=== PATIENT | female | born 1950 | race Caucasian/White ===

== ENCOUNTER 2018-06-29 13:59 | Inpatient (IN) | payer OTHER ==
[~2018-06-29] VITALS: Ht 165.1 cm; Wt 65.8 kg
--- NOTE | 2018-06-29 00:15 | NUR ---
PT SLEEPING. NO S/S OF PAIN OR RESP DISTRESS. CALL LIGHT WITHIN REACH. Addendum: 06/30/18 at 0129 by Nessa Brown RN PLS DISREGARD. WRONG DATE
[2018-06-29 14:00] VITALS: BP 135/52
--- NOTE | 2018-06-29 14:00 | NUR ---
FIRST CONTACT WITH PATIENT PATIENT RAMAN/ DAWN FIRE ON BIPAP, ENROUTE TO PCP FOR FOLLOW UP WITH RECENT DX OF COPD. PER EMS PATIENT WAS ENROUTE TO PCP, GOT LOST AND BECAME ANXIOUS, BEGAN TO HYPERVENTILATE AND DECOMPENSATED WITH LOW SATS OF 89% ON RA W/ BILAT WHEEZES HEARD ON AUSCULATATION. EMS STARTED PATIENT ON BIPAP, GAVE 1 BREATHING TX AND GOT IMMEDIATE RELEIF. PATIENT GCS 15, AAOX4, PERRLA 3/2MM BILAT. IV EST BY EMS, 20G TO LAC, C/D/P. PATIENT HR LOW 100'S BPM ON CM, NO ECTOPY NOTED, NO CP COMPLAINT AT THIS TIME. PATIENT BREATHING IS EVEN, LABORED, AND SLIGHT WHEEZES ARE HEARD BILAT. RT AT BEDSIDE, CHANGE TO [facility] BIPAP, WITH O2SAT 96-100 % ON 30% O2. PATIENT IS ABLE TO SPEAK IN FULL COMPLETE SENTENCES, AND ABLE TO MAKE NEEDS KNOWN. PATIENT DENIES ANY RECENT ILLNESS, NO RECENT TRAVEL. NO DIZZINESS, NO N/V/D. DR SUN MADE AWARE OF PATIENT STATUS. BED IN LOWEST POSITION, SIDE RAILS UP X 2 FOR SAFETY, WILL CONTINUE TO MONITOR
--- NOTE | 2018-06-29 14:00 | NUR ---
PLACED ON BIPAP TO MASK NOTED
--- NOTE | 2018-06-29 14:06 | NUR ---
REVIEWED PATIENT AND BIPAP STATUS WITH DR CHRISTOPHER SUN PER ED/MD V.O. REMOVE FROM BIPAP TO MASK PLACE ON SUPPLEMENTAL OXYGEN AT 2 LPM VIA NC AND MONITOR
[2018-06-29 14:10] VITALS: BP 177/124
[2018-06-29] MEDS ORDERED: ALBUTEROL 0.083% 2.5 MG/3 ML NEBU INH ONE (14:10)
[2018-06-29] MEDS ORDERED: IPRATROPIUM 0.02% 0.5 MG/2.5 ML NEBU INH ONE (14:10)
[2018-06-29] MEDS ORDERED: methylPREDNISolone SS 125 MG/2 ML VIAL IVP ONE (14:10)
--- NOTE | 2018-06-29 14:15 | NUR ---
PATIENT TAKEN OFF OF BIPAP AND PLACED ON 2L NC, TOLERATING WELL. RT AT BEDSIDE. WILL MONITOR CLOSELY.
--- NOTE | 2018-06-29 14:17 | NUR ---
HHN THERAPY AND RESPIRATORY GIVEN ORDERED ENCOURAGED PATIENT FOR INTERMITTENT DEEP BREATHING AND COUGH DURING THERAPY
--- NOTE | 2018-06-29 14:19 | NUR ---
rt by bedside, administering breathing txt. patient tolerating well.
--- NOTE | 2018-06-29 14:19 | NUR ---
lab by bedside
--- NOTE | 2018-06-29 14:25 | NUR ---
PATIENT CHANGED TO COOL MIST MASK 8L, PER DR SUN, CHANGED FROM BIPAP TO COOL MIST BY RT
--- NOTE | 2018-06-29 14:26 | NUR ---
XRAY AT BEDSIDE
--- NOTE | 2018-06-29 14:27 | NUR ---
Roger cabrera in [facility] - 06/29/18 at 1427 by MAGALI XRAY AT BEDSIDE.
[2018-06-29 14:29] LABS: BASOPHILS # (AUTO) 0.1 K/uL (0.00-0.22); BASOPHILS % (AUTO) 0.4 % (0.0-2.0); EOSINOPHILS # (AUTO) 0.3 K/uL (0-0.4); EOSINOPHILS % (AUTO) 2.4 % (0.0-4.0); HEMATOCRIT 42.5 % (36-48); HEMOGLOBIN 13.9 g/dL (12.0-16.0); LYMPHOCYTES # (AUTO) 1.3 K/uL (2.5-16.5); LYMPHOCYTES % (AUTO) 9.2 % (20.5-51.1); MEAN CORPUSCULAR HEMOGLOBIN 30 pg (27-31); MEAN CORPUSCULAR HGB CONC 33 g/dL (33-37); MEAN CORPUSCULAR VOLUME 91.6 fL (80-94); MONOCYTES # (AUTO) 0.7 K/uL (0.8-1.0); NEUTROPHILS # (AUTO) 11.3 K/uL (1.8-7.7); PLATELET COUNT (AUTO) 173 K/uL (140-450); RED BLOOD CELL COUNT(AUTO) 4.63 MIL/uL (4.20-5.40); RED CELL DISTRIBUTION WIDTH 13.6 % (11.6-13.7); WHITE BLOOD COUNT (AUTO) 13.6 K/uL (4.8-10.8)
[2018-06-29 14:57] LABS: ANION GAP 11.9 (8-16); CARBON DIOXIDE 25.9 mmol/L (21-32); CREATININE 1.4 mg/dL (0.6-1.3); POTASSIUM 3.8 mmol/L (3.5-5.1); TOTAL BILIRUBIN 0.3 mg/dL (0.0-1.0)
[2018-06-29] MEDS ORDERED: KETOROLAC 30 MG/ML VIAL IVP ONE (15:20)
[2018-06-29] MEDS: NACL 0.9% 1,000 ML IV SCH (16:13)
[2018-06-29] MEDS ORDERED: DOCUSATE SODIUM 100 MG GELCAP PO PRN (16:15)
[2018-06-29] MEDS ORDERED: ACETAMINOPHEN 325 MG TAB PO PRN (16:15)
[2018-06-29] MEDS ORDERED: LORazepam 2 MG/ML VIAL IM/IVP PRN (16:15)
[2018-06-29] MEDS ORDERED: ZOLPIDEM 5 MG TAB PO PRN (16:15)
[2018-06-29] MEDS ORDERED: MORPHINE SULFATE 2 MG/ML SYR IVP PRN (16:15)
[2018-06-29] MEDS ORDERED: ONDANSETRON 4 MG/2 ML VIAL IM/IVP PRN (16:15)
[2018-06-29] MEDS ORDERED: TRA200 PO (16:57)
[2018-06-29] MEDS ORDERED: MONT10TA35 PO (16:57)
[2018-06-29] MEDS ORDERED: HYDR25TA32 PO (16:57)
[2018-06-29] MEDS ORDERED: HYDR100T79 PO (16:57)
[2018-06-29] MEDS ORDERED: CITA10TA5 PO (16:57)
[2018-06-29] MEDS ORDERED: TRAZ-343 PO (16:57)
--- NOTE | 2018-06-29 17:00 | NUR ---
RECEIVED PT REPORT FROM ED NURSE ZACK. PT IS AWAKE AND ALERT, NO S/S OF ACUTE DISTRESS NOTED. NO SOB OR CHEST PAIN. PT IS ON ROOM AIR. SKIN INTACT. IV SITE NOTED ON L AC, 20 G, PATENT AND INTACT. MRSA SWAB TAKEN. FALL PRECAUTIONS PUT IN PLACE, HOWEVER PT REPORTS SHE FEELS STEADY WHEN AMBULATING. PT REPORTS HX OF HIGH BP, BP ON ADMISSION WAS 169/93. WILL MEDICATE WITH SCHEDULED HYDRALAZINE. CALL LIGHT GIVEN WITHIN REACH. WILL CONTINUE TO MONITOR.
--- NOTE | 2018-06-29 17:01 | NUR ---
PATIENT ADMITTED TO CARE OF DR HWANG ON TELE UNIT BED 111-B. TRANSFERED WHILE BEING [place]IT[place] [facility] BY RN AND EMT. STABLE DURING TRANSFER. REPORT GIVEN TO JENNIFER FAN.
[2018-06-29 17:06] LABS: PHOSPHORUS 4.1 mg/dL (2.5-4.9); THYROID STIMULATING HORMONE 0.01 uIU/mL (0.34-3.74)
[2018-06-29 17:11] LABS: PROTHROMBIN TIME 9.6 secs (10.8-13.4)
[2018-06-29 17:15] VITALS: BP 169/93
[2018-06-29] MEDS ORDERED: hydrALAZINE 25 MG TAB PO SCH (17:15)
[2018-06-29] MEDS ORDERED: NICOTINE TRANSD SYS 14 MG/24 HR PATCH TD SCH (18:00)
--- NOTE | 2018-06-29 19:30 | NUR ---
RECEIVED REPORT FROM DAY SHIFT NURSE. AAOX4. NO C/O PAIN OR SOB. ON ROOM AIR. IV TO LEFT AC #20G, NS AT 80 ML/HR INFUSING WELL. SKIN INTACT. DISCUSSED PLAN OF CARE, PT VERBALIZED UNDERSTANDING. SAFETY PRECAUTION IN PLACE. CALL LIGHT WITHIN REACH.
--- NOTE | 2018-06-29 19:50 | NUR ---
ENDORSED PT TO ASSISTANT BRANCH MANAGER IN STABLE CONDITION. ENDORSED FLU A&B NASAL SWAB TO ASSISTANT BRANCH MANAGER NURSE.
[2018-06-29 20:00] VITALS: BP 158/66
--- NOTE | 2018-06-29 20:00 | NUR ---
PT REFUSED SCDS. EXPLAINED TO PT THE RISK AND BENEFITS. PT VERBALIZED UNDERSTANDING BUT STILL REFUSED.
[2018-06-29] MEDS: methylPREDNISolone SS 40 MG/ML VIAL IVP SCH (20:51)
[2018-06-29] MEDS: hydrALAZINE 25 MG TAB PO SCH (20:51)
[2018-06-29] MEDS: LABETALOL 200 MG TAB PO SCH (20:52)
[2018-06-29] MEDS ORDERED: traZODone 50 MG TAB PO SCH (21:00)
[2018-06-29] MEDS ORDERED: LORazepam 2 MG/ML VIAL IM/IVP SCH (21:00)
[2018-06-29] MEDS: traZODone 50 MG TAB PO SCH (21:22)
--- NOTE | 2018-06-29 21:50 | NUR ---
PT SLEEPING AT THIS TIME. NO ACUTE DISTRESS NOTED. PER DR. RIOS, HOLD THE ATIVAN FOR NOW.
[2018-06-30] VITALS (7 sets, daily range): BP systolic 135–179; BP diastolic 52–72
--- NOTE | 2018-06-30 00:15 | NUR ---
PT SLEEPING. NO S/S OF PAIN OR RESP DISTRESS. CALL LIGHT WITHIN REACH.
--- NOTE | 2018-06-30 03:03 | NUR ---
PT ASLEEP. RESP EVEN AND UNLABORED. NO S/S OF PAIN OR DISCOMFORT. SAFETY MEASURES IN PLACE.
[2018-06-30] MEDS: methylPREDNISolone SS 40 MG/ML VIAL IVP SCH ×3 (04:15→20:56)
--- NOTE | 2018-06-30 04:15 | NUR ---
V/S TAKEN, WNL. DUE MEDS GIVEN. PT DENIES PAIN OR SOB.
[2018-06-30] MEDS: NACL 0.9% 1,000 ML IV SCH ×2 (05:04→18:50)
[2018-06-30 06:11] LABS: BASOPHILS % (AUTO) 0.1 % (0.0-2.0); HEMATOCRIT 39.2 % (36-48); LYMPHOCYTES # (AUTO) 0.4 K/uL (2.5-16.5); LYMPHOCYTES % (AUTO) 5.3 % (20.5-51.1); MEAN CORPUSCULAR HEMOGLOBIN 30 pg (27-31); MEAN CORPUSCULAR HGB CONC 33 g/dL (33-37); MEAN CORPUSCULAR VOLUME 91.2 fL (80-94); MONOCYTES # (AUTO) 0.1 K/uL (0.8-1.0); MONOCYTES % (AUTO) 1.6 % (1.7-9.3); NEUTROPHILS # (AUTO) 7.8 K/uL (1.8-7.7); PLATELET COUNT (AUTO) 151 K/uL (140-450); RED CELL DISTRIBUTION WIDTH 13.3 % (11.6-13.7); WHITE BLOOD COUNT (AUTO) 8.4 K/uL (4.8-10.8)
[2018-06-30 06:21] LABS: T4 (THYROXINE) 7.6 ug/dL (4.5-12.0)
--- NOTE | 2018-06-30 06:30 | NUR ---
PT SLEEPING. NO S/S OF RESP DISTRESS NOTED. IVF INFUSING WELL.
[2018-06-30 06:41] LABS: ANION GAP 11.2 (8-16); CARBON DIOXIDE 25.9 mmol/L (21-32); CREATININE 1.2 mg/dL (0.6-1.3); POTASSIUM 4.1 mmol/L (3.5-5.1)
[2018-06-30 06:47] LABS: MAGNESIUM 2.1 mg/dL (1.8-2.4); PHOSPHORUS 4.2 mg/dL (2.5-4.9)
--- NOTE | 2018-06-30 07:25 | NUR ---
ENDORSED PT TO DAY SHIFT NURSE. PT IN STABLE CONDITION.
--- NOTE | 2018-06-30 07:28 | NUR ---
RECEIVED BEDSIDE REPORT FROM FIELD INSTALLER NURSE. PT IS AOX4. DENIES PAIN. IN ROOM AIR. RESPIRATION EVEN AND UNLABORED, SPO2 AT 96%. NO SIGNS OF DISTRESS NOTED. IV ON L AC 20G, PATENT AND ASYMPTOMATIC, INFUSING PER MD ORDER. IV SITE CLEAN AND DRY. SKIN INTACT, CLEAN AND DRY. ABLE TO AMBULATE WITH STEADY GAIT INDEPENDENTLY. DISCUSSES PLAN OF CARE WITH PT, AND PT VERBALIZED UNDERSTANDING. SAFETY MEASURES IN PLACE. BED IN LOW POSITION, AND CALL LIGHT WITHIN REACH.
--- NOTE | 2018-06-30 08:09 | NUR ---
RECEIVED PATIENT ON ROOM AIR, PULSE OX SAT 96%. PATIENT DENIES SOB. HHN NOT INDICATED AT THIS TIME. NO RESPIRATORY DISTRESS NOTED AT THIS TIME. WILL CONTINUE TO MONITOR.
--- NOTE | 2018-06-30 08:30 | NUR ---
APPLIED NC @2L/MIN ON PT PER MD ORDER.
--- NOTE | 2018-06-30 08:30 | NUR ---
COLLECTED URINE FROM PT VIA DIRECT VOID INTO SPECIMEN CUP AND DELIVERED TO LAB.
[2018-06-30] MEDS: HYDROCHLOROTHIAZIDE 25 MG TAB PO SCH (08:57)
[2018-06-30] MEDS: hydrALAZINE 25 MG TAB PO SCH ×4 (08:58→20:58)
[2018-06-30] MEDS: CITALOPRAM 20 MG TAB PO SCH (08:58)
[2018-06-30] MEDS: LABETALOL 200 MG TAB PO SCH ×2 (08:58→20:58)
[2018-06-30] MEDS: NICOTINE TRANSD SYS 14 MG/24 HR PATCH TD SCH (09:00)
--- NOTE | 2018-06-30 09:03 | NUR ---
ADMINISTERED MEDS PER MD ORDER. PT REFUSED TO GET NICOTINE TRANSDERMAL PATCH AND STATED "I DON'T NEED IT NOW." PROVIDED MEDICATION EDUCATIONS TO PT, AND PT VERBALIZED UNDERSTANDING. SAFETY MEASURES IN PLACE.
[2018-06-30 09:41] LABS: APPEARANCE,URINE SL CLOUDY (CLEAR); BILIRUBIN,URINE NEGATIVE (NEGATIVE); BLOOD, URINE TRACE-I (NEGATIVE); COLOR,URINE YELLOW (YELLOW); LEUKOCYTE ESTERASE ,URINE 1+ (NEGATIVE); NITRITE, URINE POSITIVE (NEGATIVE); UGLUCOSE NEGATIVE (NEGATIVE)
[2018-06-30 09:52] LABS: RBC,URINE 0-5 /HPF (0-5); WBC,URINE 60-80 /HPF (0-5)
--- NOTE | 2018-06-30 10:25 | NUR ---
PT C/O OF HEADACHE PAIN LEVEL 2/10. VITAL SIGNS TAKEN; TEMP 97.8, BP 135/57, SPO2 98 ON NC AT 2L/MIN, PULSE 70, RESPIRATION 18. MEDICATED WITH PRN ACETAMINOPHEN. WILL CONTINUE TO MONITOR.
[2018-06-30] MEDS ORDERED: DOXYCYCLINE 100 MG in DEXTROSE 5% 100 ML IV SCH (11:13)
[2018-06-30] MEDS: HYDROcodone/APAP 5/325 MG 1 TAB TAB PO PRN ×2 (13:42→20:24)
--- NOTE | 2018-06-30 14:15 | NUR ---
IV INFILTRATED. D/C IV ON L AC, IV CANNULA INTACT AND COMPLETED. MINIMAL BLEEDING AT IV SITE. STARTED NEW IV ON R HAND 20G, INTACT AND PATENT. PT TOLERATED WELL.
--- NOTE | 2018-06-30 15:48 | NUR ---
PT C/O OF HEADACHE AND FEELING RESTLESS. VITAL SIGNS TAKEN B/P 165/66, PULSE 74, SPO2 96% WITH NC 2L/MIN, TEMP 97.8. NOTIFIED.
[2018-06-30] MEDS ORDERED: APAP/BUTAL/CAFF 325/50/40 MG 1 TAB PO PRN (16:00)
--- NOTE | 2018-06-30 17:06 | NUR ---
ADMINISTERED PRN PAIN MED FOR HEADACHE.
--- NOTE | 2018-06-30 18:40 | NUR ---
CHANGED ALL SOILED LINENS AND BLANKET.
--- NOTE | 2018-06-30 19:05 | NUR ---
ENDORSED PT TO POCKET AND PULLEY MACHINE OPERATOR NURSE AT BEDSIDE FOR CONTINUITY OF CARE. PT IS IN STABLE CONDITION.
--- NOTE | 2018-06-30 19:10 | NUR ---
RECEIVED REPORT FROM DAY SHIFT NURSE. PT LYING IN BED. AAOX4. NO C/O PAIN. NO RESP DISTRESS NOTED. ON 02 AT 2L/MIN VIA NC. SKIN INTACT. IV TO RIGHT HAND #20G, NS AT 80 ML/HR INFUSING WELL. DISCUSSED PLAN OF CARE, PT VERBALIZED UNDERSTANDING. SAFETY PRECAUTION IN PLACE. CALL LIGHT WITHIN REACH.
[2018-06-30] MEDS: BUDESONIDE 0.5 MG/2 ML NEBU INH SCH (20:43)
[2018-06-30] MEDS: ALBUTEROL SULFATE/IPRATROPIU 3 ML SOL IH PRN (20:43)
[2018-06-30] MEDS: DOXYCYCLINE 100 MG in DEXTROSE 5% 100 ML IV SCH (20:54)
[2018-06-30] MEDS: traZODone 50 MG TAB PO SCH (20:57)
--- NOTE | 2018-06-30 21:00 | NUR ---
DUE MEDS GIVEN. PT TOLERATED WELL. PT ASKED FOR SNACK, SNACK PROVIDED. ALL NEEDS MET AT THIS TIME. CALL LIGHT WITHIN REACH.
--- NOTE | 2018-06-30 22:07 | NUR ---
REVIEWED OXYGEN STATUS AND STANDING TITRATION ORDER WITH DR GABRIEL TSAI STATES TO REMOVE SUPPLEMENTAL OXYGEN VIA NC Addendum: 06/30/18 at 2215 by Juancho Morrison RT AMELIA/MITA NOTIFIED
--- NOTE | 2018-06-30 23:50 | NUR ---
PT SLEEPING BUT EASILY AROUSABLE. RESP EVEN AND UNLABORED. PT ON ROOM AIR. NO S/S OF PAIN.
[2018-07-01] VITALS (7 sets, daily range): BP systolic 137–182; BP diastolic 59–68
--- NOTE | 2018-07-01 02:30 | NUR ---
PT ASLEEP. NO S/S OF PAIN. NO S/S SOB. IVF INFUSING WELL.
[2018-07-01] MEDS: methylPREDNISolone SS 40 MG/ML VIAL IVP SCH ×2 (04:27→12:40)
--- NOTE | 2018-07-01 05:00 | NUR ---
PT SLEEPING. NO S/S OF RESP DISTRESS. NO S/S OF PAIN OR DISCOMFORT.
[2018-07-01] MEDS: NACL 0.9% 1,000 ML IV SCH ×2 (06:46→19:05)
--- NOTE | 2018-07-01 07:05 | NUR ---
ENDORSED PT TO DAY SHIFT NURSE. PT IN STABLE CONDITION.
--- NOTE | 2018-07-01 07:07 | NUR ---
RECEIVED BEDSIDE REPORT FROM STEEP TENDER NURSE. PT IS AOX4. DENIES PAIN. IN ROOM AIR. RESPIRATION EVEN AND UNLABORED, SPO2 AT 94%. NO SIGNS OF DISTRESS NOTED. IV ON R HAND 20G, PATENT AND ASYMPTOMATIC, INFUSING PER MD ORDER. IV SITE CLEAN AND DRY. SKIN INTACT, CLEAN AND DRY. ABLE TO AMBULATE WITH STEADY GAIT INDEPENDENTLY. DISCUSSES PLAN OF CARE WITH PT, AND PT VERBALIZED UNDERSTANDING. SAFETY MEASURES IN PLACE. BED IN LOW POSITION, AND CALL LIGHT WITHIN REACH.
[2018-07-01 07:45] LABS: HEMATOCRIT 37.7 % (36-48); HEMOGLOBIN 12.3 g/dL (12.0-16.0); LYMPHOCYTES # (AUTO) 0.3 K/uL (2.5-16.5); LYMPHOCYTES % (AUTO) 2.4 % (20.5-51.1); MEAN CORPUSCULAR HEMOGLOBIN 30 pg (27-31); MEAN CORPUSCULAR HGB CONC 33 g/dL (33-37); MEAN CORPUSCULAR VOLUME 92.2 fL (80-94); MONOCYTES # (AUTO) 0.3 K/uL (0.8-1.0); MONOCYTES % (AUTO) 2.1 % (1.7-9.3); NEUTROPHILS # (AUTO) 14.1 K/uL (1.8-7.7); NEUTROPHILS % (AUTO) 95.5 % (42.2-75.2); PLATELET COUNT (AUTO) 164 K/uL (140-450); RED BLOOD CELL COUNT(AUTO) 4.09 MIL/uL (4.20-5.40); RED CELL DISTRIBUTION WIDTH 13.5 % (11.6-13.7); WHITE BLOOD COUNT (AUTO) 14.8 K/uL (4.8-10.8)
[2018-07-01 08:06] LABS: ANION GAP 11.6 (8-16); CARBON DIOXIDE 24.4 mmol/L (21-32)
[2018-07-01] MEDS: BUDESONIDE 0.5 MG/2 ML NEBU INH SCH ×2 (08:15→20:36)
[2018-07-01] MEDS: ALBUTEROL SULFATE/IPRATROPIU 3 ML SOL IH PRN ×2 (08:15→20:36)
[2018-07-01 08:22] LABS: MAGNESIUM 2.1 mg/dL (1.8-2.4); PHOSPHORUS 3.3 mg/dL (2.5-4.9)
--- NOTE | 2018-07-01 08:35 | NUR ---
RECEIVED PATIENT ON ROOM AIR, PULSE OX SAT 95%. PATIENT COMPLAINS OF MILD SOB. PATIENT PRESENTS WITH COARSE/WHEEZING DRY COUGH. PRN BREATHING TREATMENT ADMINISTERED. TOLERATED WELL. SCHEDULED BREATHING TREATMENT ADMINISTERED. ORAL RINSE DONE POST TX. NO RESPIRATORY DISTRESS NOTED AT THIS TIME. NASAL CANNULA PLACED AT BEDSIDE NEEDED. WILL CONTINUE TO MONITOR.
[2018-07-01] MEDS: NICOTINE TRANSD SYS 14 MG/24 HR PATCH TD SCH (09:00)
--- NOTE | 2018-07-01 09:15 | NUR ---
PT IS WITH THE PHYSICAL THERAPIST PETAR FOR PT EVALUATION. VITAL SINGS TAKEN BP 139/59, PULSE 79, SPO2 95% RA, PAIN LEVEL 1/10 FOR HEADACHE, RESPIRATION 18.
[2018-07-01] MEDS: LACTOBACILLUS RHAMNOSUS GG 1 EACH CAP PO SCH (09:33)
[2018-07-01] MEDS: DOXYCYCLINE 100 MG in DEXTROSE 5% 100 ML IV SCH ×2 (09:33→20:31)
[2018-07-01] MEDS: hydrALAZINE 25 MG TAB PO SCH ×4 (09:33→20:27)
[2018-07-01] MEDS: LABETALOL 200 MG TAB PO SCH ×2 (09:34→20:28)
[2018-07-01] MEDS: CITALOPRAM 20 MG TAB PO SCH (09:34)
[2018-07-01] MEDS: HYDROCHLOROTHIAZIDE 25 MG TAB PO SCH (09:35)
[2018-07-01] MEDS: HYDROcodone/APAP 5/325 MG 1 TAB TAB PO PRN ×4 (09:35→23:11)
--- NOTE | 2018-07-01 09:35 | NUR ---
VITAL SIGNS TAKEN PRIOR TO MEDICATION ADMINISTRATION, TEMP 95.6, SPO2 92%, BP 142/59, PULSE 70, RR 18, HEADACHE 4. ADMINISTERED MEDS PER MD ORDER, AND PRN PAIN MED FOR HEADACHE. PT TOLERATED WELL. NO SIGNS OF DISTRESS NOTED.
--- NOTE | 2018-07-01 11:50 | NUR ---
IV INFILTRATED AND LEAKING. D/C IV, IV CANNULA INTACT AND COMPLETED. NO BLEEDING AT IV INSERTION SITE. STARTED NEW IV ON L AC 20, ASYMPTOMATIC AND PATENT, PT TOLERATED WELL.
--- NOTE | 2018-07-01 13:21 | NUR ---
ASSISTED PT TO GET OUT OF BED AND USED THE BATHROOM. PT IS ABLE TO AMBULATE WITH STANDBY ASSISTANCE.
[2018-07-01] MEDS ORDERED: methylPREDNISolone SS 125 MG/2 ML VIAL IVP ONE (14:40)
[2018-07-01] MEDS ORDERED: APAP/BUTAL/CAFF 325/50/40 MG 1 TAB PO PRN (14:55)
[2018-07-01] MEDS ORDERED: methylPREDNISolone SS 125 MG/2 ML VIAL IVP SCH (15:00)
--- NOTE | 2018-07-01 15:17 | NUR ---
PT C/O OF HEADACHE LEVEL 5/10. ADMINISTERED PRN PAIN MED.
--- NOTE | 2018-07-01 16:55 | NUR ---
PT ASKED FOR JELLO AND PUDDING. PROVIDED.
--- NOTE | 2018-07-01 19:26 | NUR ---
PT C/O HEADACHE LEVEL 5 OUT OF 10. ADMINISTERED PRN PAIN MED. PT TOLERATED WELL.
--- NOTE | 2018-07-01 19:30 | NUR ---
ENDORSED PT TO STORE GIFT WRAP ASSOCIATE NURSE AT BEDSIDE FOR CONTINUITY OF CARE. PT IS STABLE.
--- NOTE | 2018-07-01 19:31 | NUR ---
RECEIVED PATIENT FROM AM NURSE. PATIENT COMPLAINS OF MILD SOB. PATIENT PRESENTS WITH COARSE/WHEEZING DRY COUGH. SCHEDULED BREATHING TREATMENT ADMINISTERED. ORAL RINSE DONE POST TX. TOLERATED THE PROCEDURE WELL. NO RESPIRATORY DISTRESS NOTED AT THIS TIME. WITH NASAL CANNULA PLACED WITH 2 LPM O2 .WILL CONTINUE TO MONITOR.
[2018-07-01] MEDS: traZODone 50 MG TAB PO SCH (20:26)
[2018-07-01] MEDS: methylPREDNISolone SS 125 MG/2 ML VIAL IVP SCH (20:30)
--- NOTE | 2018-07-01 22:32 | NUR ---
CHECKED PT, SLEEPING AT THIS TIME. NO COMPLAINTS OF PAIN. NO S/SX'S OF RESPIRATORY DISTRESS. WILL CONTINUE TO MONITOR.
[2018-07-02] VITALS: BP 145/60
[2018-07-02] MEDS: HYDROcodone/APAP 5/325 MG 1 TAB TAB PO PRN ×5 (03:17→19:43)
--- NOTE | 2018-07-02 03:17 | NUR ---
AGAIN PT WOKE UP C/O OF HEADACHE 09/08. MEDICATED WITH NORCO
[2018-07-02 03:54] VITALS: BP 130/51
[2018-07-02] MEDS: methylPREDNISolone SS 125 MG/2 ML VIAL IVP SCH ×3 (05:54→20:29)
--- NOTE | 2018-07-02 05:59 | NUR ---
PT WOKE UP C/O HEADACHE.09/08. MEDICATED WITH NORCO Addendum: 07/02/18 at 0604 by Jonna August RN AMEND TIME TO 0315AM. PLS DELETE NOTE
--- NOTE | 2018-07-02 05:59 | NUR ---
GIVEN SOLUMEDROL, PT TOLERATED MED WELL. PT SLEPT COMFORTABLY VERBALIZED BY PT. " NEVER HAD A GOOD SLEEP TILL NOW"
[2018-07-02 06:50] LABS: HEMATOCRIT 36.5 % (36-48); LYMPHOCYTES # (AUTO) 0.4 K/uL (2.5-16.5); MEAN CORPUSCULAR HEMOGLOBIN 30 pg (27-31); MEAN CORPUSCULAR HGB CONC 33 g/dL (33-37); MEAN CORPUSCULAR VOLUME 92.1 fL (80-94); MONOCYTES # (AUTO) 0.3 K/uL (0.8-1.0); MONOCYTES % (AUTO) 2.4 % (1.7-9.3); PLATELET COUNT (AUTO) 161 K/uL (140-450); RED BLOOD CELL COUNT(AUTO) 3.96 MIL/uL (4.20-5.40); RED CELL DISTRIBUTION WIDTH 13.9 % (11.6-13.7); WHITE BLOOD COUNT (AUTO) 12.7 K/uL (4.8-10.8)
--- NOTE | 2018-07-02 07:02 | NUR ---
PT C/O OF HEADACHE 09/08. GIVEN NORCO
[2018-07-02 07:03] LABS: CARBON DIOXIDE 26.5 mmol/L (21-32); CREATININE 1.2 mg/dL (0.6-1.3); POTASSIUM 4.5 mmol/L (3.5-5.1)
--- NOTE | 2018-07-02 07:03 | NUR ---
P6 Addendum: 07/02/18 at 0703 by Jonna August RN PLS AMEND
--- NOTE | 2018-07-02 07:15 | NUR ---
ENDORSED TO AM SHIFT FOR CONTINUITY OF CARE. PT IN STABLE CONDITION.
--- NOTE | 2018-07-02 07:20 | NUR ---
SBAR REPORT RECEIVED FROM NIGHT RN. PT IS AWAKE AND ALERT, NO S/S OF ACUTE DISTRESS NOTED. NO SOB OR CHEST PAIN. PT IS ON 2L NC. SKIN INTACT. IV SITE NOTED ON LAC, 20 G, PATENT AND INTACT. CALL LIGHT GIVEN WITHIN REACH. WILL CONTINUE TO MONITOR.
[2018-07-02] MEDS: BUDESONIDE 0.5 MG/2 ML NEBU INH SCH ×2 (07:27→20:22)
[2018-07-02 07:33] LABS: PHOSPHORUS 4.5 mg/dL (2.5-4.9)
[2018-07-02] MEDS: NACL 0.9% 1,000 ML IV SCH ×2 (07:48→20:33)
[2018-07-02 08:00] VITALS: BP 142/61
[2018-07-02 08:14] LABS: LYMPHOCYTES % (AUTO) 3.1 % (20.5-51.1); NEUTROPHILS % (AUTO) 94.5 % (42.2-75.2)
[2018-07-02] MEDS: hydrALAZINE 25 MG TAB PO SCH ×4 (08:40→20:31)
[2018-07-02] MEDS: DOXYCYCLINE 100 MG in DEXTROSE 5% 100 ML IV SCH ×2 (08:40→20:33)
[2018-07-02] MEDS: CITALOPRAM 20 MG TAB PO SCH (08:40)
[2018-07-02] MEDS: LACTOBACILLUS RHAMNOSUS GG 1 EACH CAP PO SCH (08:40)
[2018-07-02] MEDS: LABETALOL 200 MG TAB PO SCH ×2 (08:41→20:29)
[2018-07-02] MEDS: HYDROCHLOROTHIAZIDE 25 MG TAB PO SCH (08:41)
[2018-07-02] MEDS: NICOTINE TRANSD SYS 14 MG/24 HR PATCH TD SCH (08:41)
--- NOTE | 2018-07-02 10:40 | NUR ---
PATIENT RESTING INTERMITTENTLY. DENIES DISCOMFORT AT THIS TIME. ALERT AND ORIENTED. CALL LIGHT WITHIN REACH.
[2018-07-02 12:00] VITALS: BP 138/56
--- NOTE | 2018-07-02 12:40 | NUR ---
PATIENT ASSISTED TO BATHROOM. LINENS CHANGED. NO ACUTE DISTRESS NOTED. CONTINUED ON 2L NC.
[2018-07-02 16:00] VITALS: BP 159/81
--- NOTE | 2018-07-02 16:50 | NUR ---
PATIENT LAC IV SITE LEAKING IVF, DISCONTINUED IV, IV REMOVED, CANULA INTACT. NEW IV STARTED ON RFA #22. PATENT, DRESSING CLEAN DRY INTACT.
--- NOTE | 2018-07-02 19:30 | NUR ---
SBAR REPORT GIVEN TO NIGHT RN AT PT BEDSIDE. PATIENT RESTING IN BED. IV SITE PATENT AND INTACT. NO ACUTE DISTRESS NOTED.
--- NOTE | 2018-07-02 19:31 | NUR ---
RECEIVED REPORT FROM FLOOR DIRECTORMITA HICKS FOR CONTINUITY OF CARE. PT A/OX4 ON 2L O2 VIA NASAL CANNULA. PT IS A FALL RISK, FALL PRECAUTIONS IN PLACE. SKIN IS INTACT. PT HAS A 22G IV TO RIGHT FOREARM, ASYMPTOMATIC AND INTACT. VITAL SIGNS WITHIN NORMAL LIMITS. PT STABLE, C/O 6/10 PAIN (JACOB), WILL GIVE NORCO ORDERED, NO SIGNS OF DISTRESS NOTED AT THIS TIME. PT POSITIONED FOR COMFORT. BED IN LOWEST POSITION, BED ALARM ON. WILL CONTINUE TO MONITOR.
[2018-07-02 20:00] VITALS: BP 145/60
[2018-07-02] MEDS: ALBUTEROL SULFATE/IPRATROPIU 3 ML SOL IH SCH (20:22)
[2018-07-02] MEDS: traZODone 50 MG TAB PO SCH (20:30)
--- NOTE | 2018-07-02 20:38 | NUR ---
ADMINISTERED SCHEDULED MEDICATIONS, PT TOLERATED WELL. RT AT BEDSIDE.
--- NOTE | 2018-07-02 20:45 | NUR ---
RECEIVED PATIENT ON ROOM AIR, PULSE OX SAT 94%. SCHEDULED BREATHING TREATMENTS ADMINISTERED. TOLERATED TREATMENTS WELL, NO ADVERSE SIDE EFFECTS. ORAL RINSE DONE POST TX. NO RESPIRATORY DISTRESS NOTED. WILL CONTINUE TO MONITOR.
--- NOTE | 2018-07-02 22:40 | NUR ---
PT STABLE, NO SIGNS OF DISTRESS NOTED AT THIS TIME. PT POSITIONED FOR COMFORT. BED IN LOWEST POSITION, BED ALARM ON. WILL CONTINUE TO MONITOR.
[2018-07-03] VITALS: BP 143/76
--- NOTE | 2018-07-03 | NUR ---
VITAL SIGNS WITHIN NORMAL LIMITS. PT STABLE, DENIES PAIN, NO SIGNS OF DISTRESS NOTED AT THIS TIME. PT POSITIONED FOR COMFORT. BED IN LOWEST POSITION, BED ALARM ON. WILL CONTINUE TO MONITOR.
[2018-07-03] MEDS: HYDROcodone/APAP 5/325 MG 1 TAB TAB PO PRN ×3 (01:59→14:43)
--- NOTE | 2018-07-03 02:35 | NUR ---
PT RESTING IN BED, NO SIGNS OF DISTRESS NOTED AT THIS TIME. PT POSITIONED FOR COMFORT. BED IN LOWEST POSITION, BED ALARM ON. WILL CONTINUE TO MONITOR.
[2018-07-03 04:00] VITALS: BP 139/55
[2018-07-03] MEDS: methylPREDNISolone SS 125 MG/2 ML VIAL IVP SCH ×2 (05:35→13:40)
--- NOTE | 2018-07-03 05:35 | NUR ---
ADMINISTERED SCHEDULED MEDICATIONS, PT TOLERATED WELL.
[2018-07-03] MEDS: ALBUTEROL SULFATE/IPRATROPIU 3 ML SOL IH SCH ×2 (07:01→13:00)
[2018-07-03 07:08] LABS: BASOPHILS % (AUTO) 0.1 % (0.0-2.0); HEMATOCRIT 39.7 % (36-48); HEMOGLOBIN 13.1 g/dL (12.0-16.0); LYMPHOCYTES # (AUTO) 0.5 K/uL (2.5-16.5); MEAN CORPUSCULAR HEMOGLOBIN 30 pg (27-31); MEAN CORPUSCULAR HGB CONC 33 g/dL (33-37); MEAN CORPUSCULAR VOLUME 91.2 fL (80-94); MONOCYTES # (AUTO) 0.4 K/uL (0.8-1.0); MONOCYTES % (AUTO) 3.6 % (1.7-9.3); NEUTROPHILS # (AUTO) 10.6 K/uL (1.8-7.7); NEUTROPHILS % (AUTO) 92.3 % (42.2-75.2); PLATELET COUNT (AUTO) 173 K/uL (140-450); RED BLOOD CELL COUNT(AUTO) 4.35 MIL/uL (4.20-5.40); RED CELL DISTRIBUTION WIDTH 13.8 % (11.6-13.7); WHITE BLOOD COUNT (AUTO) 11.5 K/uL (4.8-10.8)
[2018-07-03] MEDS: BUDESONIDE 0.5 MG/2 ML NEBU INH SCH (07:09)
[2018-07-03 07:13] LABS: ANION GAP 13.6 (8-16); CARBON DIOXIDE 24.5 mmol/L (21-32); CREATININE 1.3 mg/dL (0.6-1.3); POTASSIUM 4.1 mmol/L (3.5-5.1)
[2018-07-03 07:17] LABS: MAGNESIUM 2.2 mg/dL (1.8-2.4); PHOSPHORUS 4.4 mg/dL (2.5-4.9)
--- NOTE | 2018-07-03 07:21 | NUR ---
ENDORSED PT TO DAY SHIFT RN SITAL FOR CONTINUITY OF CARE. PT IN STABLE CONDITION.
--- NOTE | 2018-07-03 07:22 | NUR ---
RECEIVED REPORT FROM PM NURSE AT BEDSIDE. PT ON BREATHING TREATMENT. INTRODUCED SELF AND UPDATED BOARD. PT HAS RT HAND IV 20 G. IVF NS INFUSING AT 80 ML/HR. PT HAS O2 VIA NC 2LPM . A0X4. NO SIGN OF DISTRESS NOTED. CALL LIGHT WITHIN PT REACH. INFORMED TO USE CALL LIGHT FOR ANY HELP. WILL CONTINUE TO MONITOR PT.
[2018-07-03 08:00] VITALS: BP 137/59
[2018-07-03] MEDS: NACL 0.9% 1,000 ML IV SCH ×2 (08:35→13:47)
[2018-07-03] MEDS: LACTOBACILLUS RHAMNOSUS GG 1 EACH CAP PO SCH (08:44)
[2018-07-03] MEDS: hydrALAZINE 25 MG TAB PO SCH ×2 (08:44→13:36)
[2018-07-03] MEDS: CITALOPRAM 20 MG TAB PO SCH (08:45)
[2018-07-03] MEDS: LABETALOL 200 MG TAB PO SCH (08:45)
[2018-07-03] MEDS: HYDROCHLOROTHIAZIDE 25 MG TAB PO SCH (08:45)
[2018-07-03] MEDS: DOXYCYCLINE 100 MG in DEXTROSE 5% 100 ML IV SCH (08:46)
[2018-07-03] MEDS: NICOTINE TRANSD SYS 14 MG/24 HR PATCH TD SCH (08:46)
--- NOTE | 2018-07-03 08:52 | NUR ---
ADMINISTERED MEDS TO PT ORDERED. REFUSED HER NICOTINE PATCH. STATES DO NOT WANT IT. PT ON RA, STATES ABLE TO BREATHE COMFORTABLY. NO SIGN OF DISTRESS NOTED. SAFETY MEASURE IN PLACE. WILL CONTINUE TO MONITOR PT.
[2018-07-03] MEDS ORDERED: [UNRECOGNIZED DRUG - CODE] IV (11:34)
[2018-07-03] MEDS ORDERED: ROC1PM IV (11:34)
[2018-07-03] MEDS ORDERED: LACT10CA1 PO (11:34)
[2018-07-03 12:00] VITALS: BP 168/64
[2018-07-03] MEDS ORDERED: METH4TAB3 PO (12:34)
--- NOTE | 2018-07-03 12:57 | NUR ---
RECEIVED ORDER FOR IV ANTIBIOTICS AT [facility]. SPOKE WITH ANNIKA FROM [facility]., PHONE [phone]. FAXED INQUIRY TO [phone]. PHONE [facility], [phone] Addendum: 07/03/18 at 1306 by Miriam Wright ANNIKA FROM [facility] HERE TO SEE PATIENT.
--- NOTE | 2018-07-03 13:28 | NUR ---
PT REFUSED BREATHING TX NO SIGNS OF DISTRESS WANTS TO GET SOME SLEEP BEFORE SHE LEAVES
--- NOTE | 2018-07-03 14:01 | NUR ---
SPOKE WITH ANNIKA FROM [facility]., PHONE [phone]. THE PATIENT CAN GO TO ROOM 22A UNDER DR[address] COHEN. [facility] WILL PAY FOR TRANSPORT. I CALLED [facility] AND SET UP WC TRANSPORT FOR 5P.M. AND TOLD THEM TO [facility]. I INFORMED PEE FANIMAGE ARCHIVIST NURSE.
--- NOTE | 2018-07-03 16:03 | NUR ---
CALLED [facility] AND REPORT WAS GIVEN TO SONYA MACK. CALL BACK NUMBER GIVEN FOR ANY ADDITIONAL QUESTION. PT TO TRANSFER TO [facility] TO CONTINUE IV ANTIBIOTIC.
[2018-07-03] MEDS ORDERED: INFLUENZA VIRUS VACCINE QUAD 0.5 ML SYR IMVAC PRN (16:10)
[2018-07-03] MEDS ORDERED: PNEUMOCOCCAL VACCINE 23 MCG/0.5 ML VIAL IMVAC SCH (17:00)
--- NOTE | 2018-07-03 17:10 | NUR ---
PT DISCHARGED AND TRANSFER TO [facility]. PT HAS HIGH BP, HYDRALAZINE SCHEDULED MEDS PROVIDED. PT PICKED UP BY [facility] PERSONNEL. PT STABLE AT TIME OF DISCHARGE. PT WAS WHEELED OUT TOP THE LOBBY. PT WAS PROVIDED WITH DISCHARGE INSTRUCTION AND DC PACKET WAS PROVIDED.
[2018-07-03] MEDS ORDERED: methylPREDNISolone SS 40 MG/ML VIAL IVP SCH (21:00)
[2018-07-04] MEDS ORDERED: methylPREDNISolone SS 40 MG/ML VIAL IVP SCH (21:00)
== END 2018-07-03 17:10 | DRG 871 ==
LOC: MED 13:59 → MTU 16:13
PROVIDERS: ADMIT General Practice; ATTEND General Practice
PROC: 3E02340 Introduction of Influenza Vaccine into Muscle, Percutaneous Approach (ICD-10-PCS; principal; 2018-07-03)
PROC: 3E0234Z Introduction of Serum, Toxoid and Vaccine into Muscle, Percutaneous Approach (ICD-10-PCS; 2018-07-03)
DX: A41.9 Sepsis, unspecified organism (principal); N17.0 Acute kidney failure with tubular necrosis; J96.01 Acute respiratory failure with hypoxia; J18.9 Pneumonia, unspecified organism; J44.1 Chronic obstructive pulmonary disease with (acute) exacerbation; E44.0 Moderate protein-calorie malnutrition; N39.0 Urinary tract infection, site not specified; J44.0 Chronic obstructive pulmonary disease with (acute) lower respiratory infection; K57.90 Diverticulosis of intestine, part unspecified, without perforation or abscess without bleeding; F17.210 Nicotine dependence, cigarettes, uncomplicated; F32.9 Major depressive disorder, single episode, unspecified; F41.9 Anxiety disorder, unspecified; I10 Essential (primary) hypertension; Z80.1 Family history of malignant neoplasm of trachea, bronchus and lung; Z66 Do not resuscitate; K59.00 Constipation, unspecified; G47.00 Insomnia, unspecified; B96.20 Unspecified Escherichia coli [E. coli] as the cause of diseases classified elsewhere; B96.3 Hemophilus influenzae [H. influenzae] as the cause of diseases classified elsewhere; T38.0X5A Adverse effect of glucocorticoids and synthetic analogues, initial encounter; Z68.24 Body mass index [BMI] 24.0-24.9, adult; Z90.710 Acquired absence of both cervix and uterus; Z91.14 Patient's other noncompliance with medication regimen; Y92.89 Other specified places as the place of occurrence of the external cause; Z23 Encounter for immunization
CPT/HCPCS: 36415; 36600; 71045; 80048; 80053; 81001; 82150; 82803; 83036; 83605; 83690; 83735; 83880; 84100; 84436; 84443; 84484; 85025; 85610; 85730; 87040; 87070; 87081; 87086; 87186; 87205; 87804; 90732; 93005; 94640; 96374; 96375; 97110; 97116; 99285; J0696; J1885; J2920; J2930; J3490; J7030; J7060; J7613; J7620; J7626; J7644; Q0092